=== PATIENT | female | born 1990 | race Caucasian/White ===

== ENCOUNTER 2017-07-10 17:37 | Emergency (ER) | payer OTHER ==
[~2017-07-10] VITALS: Ht 154.9 cm; Wt 61.2 kg
[2017-07-10] MEDS ORDERED: SODIUM CHLORIDE 0.9% 1000ML 1,000 ML ONE (18:00)
[2017-07-10] MEDS ORDERED: KETOROLAC TROMETHAMINE 30 MG/ML VIAL IV ONE (18:00)
[2017-07-10] MEDS ORDERED: ACETAMINOPHEN 325 MG TAB PO ONE (19:00)
[2017-07-10] MEDS ORDERED: IBUPROFEN400 MG PO (19:09)
[2017-07-10] MEDS ORDERED: NASONEX17 GM (19:09)
[2017-07-10] MEDS ORDERED: BROMFED DM COU118 ML PO (19:09)
[2017-07-10] MEDS ORDERED: XYZAL5 MG PO (19:09)
[2017-07-10 19:42] VITALS: BP 115/60
== END 2017-07-10 19:30 | disposition home or self-care (01) ==
LOC: FSED 17:37
DX: R55 Syncope and collapse (principal); J00 Acute nasopharyngitis [common cold]; J02.9 Acute pharyngitis, unspecified; J01.00 Acute maxillary sinusitis, unspecified
CPT/HCPCS: 80048; 80053; 80307; 81003; 81025; 82553; 84484; 85025; 93005; 96360; 96374; 99283; J1885; J7030